=== PATIENT | male | born 1950 | race Caucasian/White ===

== ENCOUNTER 2022-11-08 22:24 | Inpatient (IN) | payer MEDICARE, OTHER ==
[~2022-11-08] VITALS: Ht 188 cm; Wt 97.1 kg
[2022-11-08] MEDS ORDERED: CEFTRIAXONE 1GM BAG (ER ONLY) 50 ML IV ONE (22:39)
[2022-11-08] MEDS ORDERED: CEFTRIAXONE 1GM BAG (ER ONLY) 1 GM/50 ML PIGGYBACK IV ONE (23:00)
[2022-11-08] MEDS ORDERED: IV NS 0.9% 1,000 ML BAG IV ONE (23:00)
--- NOTE | 2022-11-08 23:08 | NUR ---
[id number] from home, weakness, Hx of liver cirrhosis, BP 85/46 on scene IN 90S SYSTOLIC AT TRIAGE. PT AWAKE AND ALERT BREATHING UNLABORED ON 2LPM NC. CHANGED INTO GOWN AND MD AT BEDSIDE FOR EVAL.
[2022-11-08 23:50] LABS: BASOPHILS # (AUTO) 0.1 K/uL (0.0-0.2); BASOPHILS % (AUTO) 1.1 % (0.0-2.0); EOSINOPHILS % (AUTO) 0.3 % (0.0-6.0); HEMATOCRIT 26 % (39-51); HEMOGLOBIN 8.4 g/dL (13.5-17.5); LYMPHOCYTES # (AUTO) 1.4 K/uL (0.8-4.8); LYMPHOCYTES % (AUTO) 17.4 % (20.0-44.0); MEAN CORPUSCULAR HGB CONC 32 g/dl (31.0-36.0); MEAN CORPUSCULAR VOLUME 103 fL (80-96); MONOCYTES # (AUTO) 0.4 K/uL (0.1-1.30); MONOCYTES % (AUTO) 4.9 % (2.0-12.0); NEUTROPHILS # (AUTO) 6.3 K/uL (1.8-8.9); NEUTROPHILS % (AUTO) 76.3 % (43.0-81.0); PLATELET COUNT (AUTO) 161 K/uL (150-450); RED BLOOD CELL COUNT(AUTO) 2.53 MIL/uL (4.5-6.0); WHITE BLOOD COUNT (AUTO) 8.2 K/uL (4.3-11.0)
--- NOTE | 2022-11-08 23:55 | NUR ---
20g IV STARTED AT [facility].MEDICATED ORDERED.
[2022-11-09 00:04] LABS: BILIRUBIN,URINE 3+ (NEGATIVE); COLOR,URINE DARK YELLOW (YELLOW); LEUKOCYTE ESTERASE ,URINE NEGATIVE (NEGATIVE); NITRITE, URINE POSITIVE (NEGATIVE); PROTEIN,URINE 2+ mg/dl (NEGATIVE); UGLUCOSE TRACE mg/dL (NEGATIVE)
[2022-11-09 00:14] LABS: SODIUM SERUM 133 mmol/L (136-145)
[2022-11-09 00:15] LABS: CALCIUM, SERUM 7.9 mg/dL (8.5-10.1); CARBON DIOXIDE 14 mmol/L (21-32); CHLORIDE 106 mmol/L (98-107); CREATININE 3.2 mg/dL (0.6-1.3); GLUCOSE 189 mg/dL (74-106); POTASSIUM 5.8 mmol/L (3.5-5.1); UREA NITROGEN, BLOOD 52 mg/dL (7-18)
[2022-11-09 00:16] LABS: BILIRUBIN,DIRECT 5.3 mg/dL (0.0-0.2); BILIRUBIN,TOTAL 7.6 mg/dL (0.2-1.0)
[2022-11-09 00:17] LABS: ALANINE AMINOTRANSFERASE 119 U/L (12-78); ALBUMIN 1.5 g/dL (3.4-5.0); ALKALINE PHOSPHATASE 123 U/L (46-116); ASPARTATE AMINOTRANSFERASE 109 U/L (15-37); TOTAL PROTEIN, SERUM 4.9 g/dL (6.4-8.2)
[2022-11-09 00:39] LABS: BACTERIA,URINE 2+ /HPF (None Seen); CALCIUM OXALATE CRYSTALS,UR Few /HPF (None Seen); COARSE GRANULAR CASTS,URINE Few /LPF (None Seen); SQUAMOUS EPITHELIAL CELL,UR Few /HPF (None Seen); WBC,URINE 0-2 /HPF (0-3)
[2022-11-09] MEDS ORDERED: TRAMADOL HCL 50 MG TABLET PO ONE (01:30)
[2022-11-09] MEDS ORDERED: ALBUMIN 5% 12.5 GM/250 ML BOTTLE IV ONE ×2 (01:30→02:00)
[2022-11-09] MEDS ORDERED: TRAMADOL HCL 50 MG TABLET ONE (01:36)
[2022-11-09] MEDS ORDERED: ALBUMIN 5% 250 ML IV ONE (01:57)
[2022-11-09] MEDS ORDERED: IV NS 0.9% 1,000 ML IV ONE (02:00)
[2022-11-09] MEDS ORDERED: MISCELLANEOUS MED 1 EA EA IV ONE (02:30)
--- NOTE | 2022-11-09 02:36 | NUR ---
PT COMPLAINING OF PAIN AT IV SITE AND REQUESTING IV REMOVAL. FAMILY REQUESTING PICC LINE PLACEMENT. MD MADE AWARE AND ORDER PLACED. NURSING SUPERVISOR CARTOGRAPHY MADE AWARE.
[2022-11-09] MEDS ORDERED: LORAZEPAM 1 MG TABLET PO ONE (03:30)
--- NOTE | 2022-11-09 03:35 | NUR ---
20g IV STARTED AT [facility]. ALBUMIN AND IVF REINITIATED.
[2022-11-09] MEDS ORDERED: LORAZEPAM 1 MG TABLET ONE (03:36)
--- NOTE | 2022-11-09 05:25 | NUR ---
PICC LINE CONSENT SIGNED AND PLACED IN CHART
[2022-11-09] MEDS ORDERED: CEFTRIAXONE 1 G in IV D5W 50 ML IV SCH ×2 (06:00→22:00)
[2022-11-09] MEDS ORDERED: MORPHINE SULFATE INJ 2 MG/ML DISP.SYRIN IV PRN (06:30)
[2022-11-09] MEDS ORDERED: ACETAMINOPHEN 325 MG TABLET PO PRN (06:30)
[2022-11-09] MEDS ORDERED: ONDANSETRON HCL/PF 4 MG/2 ML VIAL IVP PRN (06:30)
[2022-11-09] MEDS ORDERED: TRAMADOL HCL 50 MG TABLET PO PRN (07:00)
[2022-11-09] MEDS ORDERED: LACTULOSE 10 G/15 ML UDC (PYXIS) ONE (07:06)
[2022-11-09] MEDS: LACTULOSE 10 G/15 ML UDC (PYXIS) PO SCH ×4 (07:07→18:30)
[2022-11-09 07:30] LABS: ALANINE AMINOTRANSFERASE 553 U/L (12-78); ALBUMIN 1.7 g/dL (3.4-5.0); ALKALINE PHOSPHATASE 136 U/L (46-116); ASPARTATE AMINOTRANSFERASE 792 U/L (15-37); BILIRUBIN,DIRECT 5.3 mg/dL (0.0-0.2); BILIRUBIN,TOTAL 7.7 mg/dL (0.2-1.0); CALCIUM, SERUM 7.8 mg/dL (8.5-10.1); CARBON DIOXIDE 16 mmol/L (21-32); CHLORIDE 106 mmol/L (98-107); CREATININE 3.3 mg/dL (0.6-1.3); GLUCOSE 158 mg/dL (74-106); MAGNESIUM 2.1 mg/dL (1.8-2.4); PHOSPHORUS 6.2 mg/dL (2.5-4.9); POTASSIUM 5.5 mmol/L (3.5-5.1); SODIUM SERUM 133 mmol/L (136-145); TOTAL PROTEIN, SERUM 4.7 g/dL (6.4-8.2); UREA NITROGEN, BLOOD 51 mg/dL (7-18)
[2022-11-09 07:32] LABS: BASOPHILS % (AUTO) 0.5 % (0.0-2.0); EOSINOPHILS % (AUTO) 0.3 % (0.0-6.0); HEMATOCRIT 28 % (39-51); HEMOGLOBIN 8.7 g/dL (13.5-17.5); LYMPHOCYTES % (AUTO) 11.6 % (20.0-44.0); MEAN CORPUSCULAR HGB CONC 32 g/dl (31.0-36.0); MEAN CORPUSCULAR VOLUME 106 fL (80-96); MONOCYTES # (AUTO) 0.5 K/uL (0.1-1.30); MONOCYTES % (AUTO) 5.9 % (2.0-12.0); NEUTROPHILS % (AUTO) 81.7 % (43.0-81.0); PLATELET COUNT (AUTO) 141 K/uL (150-450); RED BLOOD CELL COUNT(AUTO) 2.59 MIL/uL (4.5-6.0); WHITE BLOOD COUNT (AUTO) 8.5 K/uL (4.3-11.0)
--- NOTE | 2022-11-09 08:02 | NUR ---
REPORT GIVEN TO RN FOR HANDOFF
[2022-11-09 08:22] LABS: CHOLESTEROL 74 mg/dL (<200); HDL CHOLESTEROL 29 mg/dL (40-60); LDL 33 mg/dL (0-99); TRIGLYCERIDES 58 mg/dL (30-150)
--- NOTE | 2022-11-09 08:38 | NUR ---
RN OPENING NOTES RECEIVED PATIENT FROM EMERGENCY DEPARTMENT. BREATHING EVENLY AND UNLABORED ON ROOM AIR. ATTACHED TO TELEMETRY BOX. IV ACCESS ON LEFT UPPER ARM SALINE LOCKED. SAFETY MEASURES IMPLEMENTED. WILL CONTINUE PLAN OF CARE AND ANTICIPATE NEEDS.
--- NOTE | 2022-11-09 08:46 | NUR ---
PATIENT TRANSFERRED TO 105-1, REPORT GIVEN TO PERCY GROVE, ALL CARE ENDORSED
[2022-11-09] MEDS ORDERED: PANTOPRAZOLE 40 MG VIAL IV SCH (09:00)
[2022-11-09] MEDS ORDERED: DIGO250T PO (09:30)
[2022-11-09] MEDS ORDERED: CHOL100043 PO (09:30)
[2022-11-09] MEDS ORDERED: LINA5TAB PO (09:30)
[2022-11-09] MEDS ORDERED: TAMS-12 PO (09:30)
[2022-11-09] MEDS ORDERED: METO25TA20 PO (09:30)
[2022-11-09] MEDS: PHYTONADIONE INJ 10 MG/1 ML AMPUL SQ SCH (10:29)
[2022-11-09 12:00] VITALS: BP 90/41
[2022-11-09 16:00] VITALS: BP 86/35
--- NOTE | 2022-11-09 18:42 | NUR ---
PATIENT REFUSED LACTULOSE. EXPLAINED BENEFITS OF THE MEDICATION TO THE PATIENT. STILL REFUSES MEDICATION. WILL CONTINUE PLAN OF CARE AND ANTICIPATE NEEDS.
--- NOTE | 2022-11-09 18:57 | NUR ---
RN CLOSING NOTES PATIENT REMAINS IN BED, BREATHING EVENLY AND UNLABORED ON ROOM AIR. ATTACHED TO TELEMETRY BOX, READING ATRIAL FLUTTER WITH RIGHT BUNDLE BRANCH BLOCK. IV ACCESS ON RIGHT UPPER ARM SALINE LOCKED AND LEFT UPPER ARM MIDLINE. KEPT CLEAN AND DRY THROUGHOUT SHIFT. SAFETY MEASURES IMPLEMENTED. WILL ENDORSE TO NIGHTSHIFT PERCY BROWN FOR CONTINUATION OF CARE.
--- NOTE | 2022-11-09 19:30 | NUR ---
RN OPENING NOTES RECEIVED PATIENT AWAKE IN BED, A/O X2 FOLLOWS COMMANDS, SPANISH SPEAKING, FAMILY MEMBER AT BEDSIDE, BREATHING EVENLY AND UNLABORED ON ROOM AIR. ATTACHED TO TELEMETRY BOX, READING ATRIAL FLUTTER WITH RIGHT BUNDLE BRANCH BLOCK AT 89 BPM. IV ACCESS ON RIGHT UPPER ARM SALINE LOCKED AND LEFT UPPER ARM MIDLINE. SAFETY MEASURES IMPLEMENTED. WILL CONTINUE TO MONITOR THROUGHOUT THE SHIFT.
[2022-11-09 20:00] VITALS: BP 76/45
[2022-11-09] MEDS: MIDODRINE HCL (5MG) 5 MG TABLET PO SCH (20:13)
--- NOTE | 2022-11-09 20:13 | NUR ---
RN NOTE NOTED PT BP AT 75/49, BUILDING ENERGY RETROFIT TECHNICIAN MADE AWARE, ORDERED MIDODRINE 10 MG PO, ORDER TAKEN AND CARRIED OUT, WILL CONT TO MONITOR. CN MADE AWARE.
[2022-11-09] MEDS ORDERED: ALBUMIN 25% 25 GM in PREMIX 1 EA IV SCH (22:30)
[2022-11-10] VITALS: BP 78/48
[2022-11-10] MEDS ORDERED: ALBUMIN 25% 100 ML IV ONE (00:06)
--- NOTE | 2022-11-10 00:19 | NUR ---
RN NOTE PT BP AT 78/48 HR AT 124 AFTER MIDODRINE PO AND ALBUMIN 25 MG GIVEN, ONCALL MADE AWARE, ORDERED NS BOLUS AT 500 ML/HR, PT TOLERATED WELL, WILL CONT TO MONITOR THROUGHOUT THE SHIFT.
[2022-11-10] MEDS: LACTULOSE 10 G/15 ML UDC (PYXIS) PO SCH ×2 (00:30→06:30)
[2022-11-10] MEDS ORDERED: IV NS 0.9% 500 ML IV ONE (01:00)
--- NOTE | 2022-11-10 01:00 | NUR ---
RN NOTE PT REFUSED SCHEDULED LACTULOSE, EDUCATED ABOUT THE IMPORTANCE OF MEDICATION FOR HIS LIVER CIRRHOSIS, PT STILL REFUSED, WILL CONT TO MONITOR.
--- NOTE | 2022-11-10 03:41 | NUR ---
PT PLACED OH HFNC 40L 100% DUE TO RESP DISTRESS. PT CURRENTLY ON NRB 15L WITH HFNC S/B. SPO2 >92%.
[2022-11-10 04:00] VITALS: BP 102/60
--- NOTE | 2022-11-10 05:00 | NUR ---
RN NOTE CALLED DAUGHTER CLAUDIA, UPDATES WERE GIVEN ABOUT PT CONDITION. PER CLAUDIA THEY WILL BE COMING OVER AT 8AM.
--- NOTE | 2022-11-10 07:00 | NUR ---
RN CLOSING NOTES PATIENT AWAKE IN BED, A/O X1-2 , ON NRB MASK SATING 100%, ATTACHED TO TELEMETRY BOX, READING AFIB WITH RIGHT BUNDLE BRANCH BLOCK AT 89 BPM. IV ACCESS ON LEFT UPPER ARM ML GOT DISLODGED, OBTAINED NEW ACCESS ON LAC #20G SALINE LOCKED. PT REFUSED AM SCHEDULED LACTULOSE PER PT "I DON'T WANT TO TAKE ANYTHING RIGHT NOW" ENCOURAGE ABOUT THE IMPORTANCE OF TAKING MEDS, PT STILL REFUSED. SAFETY MEASURES IMPLEMENTED THROUGHOUT THE SHIFT. WILL ENDORSE TO AM SHIFT NURSE FOR CONTINUITY OF CARE.
--- NOTE | 2022-11-10 07:15 | NUR ---
RACKING MACHINE OPERATOR OPENING NOTES: RECEIVED REPORT FROM PERCY SOLER. PATIENT IN BED, AWAKE BUT NON VERBAL, DOES NOT ANSWER TO HIS NAME. PATIENT IS ON HIGH FLOW OXYGEN WITH OXYGEN SATURATION OF 95% AT THIS TIME. HOB KEPT ELEVATED. ON A-FIB WITH HR OF 63 PER TELE MONITOR. PATIENT HAS IV ACCESS ON LEFT UPPER ARM. ALL SAFETY MEASURES IN PLACE. BED LOCKED AND IN LOWEST POSITION WITH BED ALARM ON. CALL LIGHT WITHIN REACH. WILL CONTINUE TO MONITOR PATIENT AT THIS TIME.
[2022-11-10 08:00] VITALS: BP 84/31
--- NOTE | 2022-11-10 08:23 | NUR ---
PATIENT NOTED TO HAVE OXYGEN SATURATION OF 78%. CONTACTED RT TO PLEASE CHECK THE PATIENT. REPOSITIONED PATIENT FOR COMFORT AND PLACED ON HIGH MERRITT'S POSITION WITH HIGH OXYGEN INTACT. WILL CONTINUE TO MONITOR PATIENT
[2022-11-10 08:39] VITALS: BP 84/31
[2022-11-10] MEDS: MIDODRINE HCL (5MG) 5 MG TABLET PO SCH (08:39)
--- NOTE | 2022-11-10 08:39 | NUR ---
PO MEDS NOT GIVEN TO THE PATIENT HIGH RISK FOR ASPIRATION
--- NOTE | 2022-11-10 08:45 | NUR ---
RT CAME AND CHECKED THE PATIENT, OXYGEN SATURATION IS 80, WILL ALSO CHANGE THE OXYGEN SENSOR FOR THE PATIENT
[2022-11-10] MEDS: PHYTONADIONE INJ 10 MG/1 ML AMPUL SQ SCH (09:00)
[2022-11-10] MEDS ORDERED: PANTOPRAZOLE 40 MG TABLET.DR PO SCH (09:00)
--- NOTE | 2022-11-10 09:03 | NUR ---
CALLED DAUGHTER CLAUDIA @ AND UPDATED HER ABOUT PATIENT'S DROP IN OXYGEN LEVEL AND WITH THE HR OF 43 RIGHT NOW AND SAID THAT THEY ARE ON THEIR WAY TO SEE THE PATIENT RIGHT NOW.
--- NOTE | 2022-11-10 09:12 | NUR ---
FAMILY MEMBERS CAME TO SEE THE PATIENT, ON HIGH FLOW OXYGEN AND OXYGEN LEVEL IS RAPIDLY DETERIORATING TO 65. KEPT PATIENT ON HIGH MERRITT'S POSITION TO FACILITATE PROPER OXYGENATION. HR IS ALSO DROPPING TO 40 PER TELE MONITOR.
--- NOTE | 2022-11-10 09:34 | NUR ---
CHECKED THE PATIENT AGAIN AND NOTICED THAT THERE IS NO OXYGEN SATURATION ON THE MONITOR. CHECKED THE HEART MONITOR AND ASYSTOLE ON THE MONITOR. PATIENT HAS NO CAROTID PULSE, NO BREATHING NOTED, PUPILS FIXED AND DILATED. CHARGE NURSE MADE AWARE THAT THE PATIENT . FAMILY INFORMED. ALSO NOTIFIED COMMERCIAL PROPERTY MANAGER AND DR. MULTANI. CALLED [facility]. PROVIDED PRIVACY FOR THE FAMILY TO MOURN AT THIS TIME
--- NOTE | 2022-11-10 10:03 | NUR ---
FAMILY LEFT AND PROVIDED POSTMORTEM CARE TO THE PATIENT AND PLACED HIM IN A BAG FOR ASSEMBLER METAL FURNITURE BY THE [facility]
== END 2022-11-10 09:45 | DRG 441 ==
LOC: ER 22:35 → TRANSITION 11-09 06:03 → TELE1 11-09 07:45
PROC: 05HC33Z Insertion of Infusion Device into Left Basilic Vein, Percutaneous Approach (ICD-10-PCS; principal; 2022-11-09)
DX: K76.82 Hepatic encephalopathy (principal); E43 Unspecified severe protein-calorie malnutrition; K76.7 Hepatorenal syndrome; N17.0 Acute kidney failure with tubular necrosis; N18.6 End stage renal disease; I12.0 Hypertensive chronic kidney disease with stage 5 chronic kidney disease or end stage renal disease; C22.0 Liver cell carcinoma; D68.9 Coagulation defect, unspecified; E87.1 Hypo-osmolality and hyponatremia; E87.20 Acidosis, unspecified; J90 Pleural effusion, not elsewhere classified; J98.11 Atelectasis; K72.10 Chronic hepatic failure without coma; Z20.822 Contact with and (suspected) exposure to COVID-19; E11.22 Type 2 diabetes mellitus with diabetic chronic kidney disease; I48.91 Unspecified atrial fibrillation; Z66 Do not resuscitate; Z76.82 Awaiting organ transplant status; K70.9 Alcoholic liver disease, unspecified; I25.10 Atherosclerotic heart disease of native coronary artery without angina pectoris; F10.21 Alcohol dependence, in remission; E87.70 Fluid overload, unspecified; E86.9 Volume depletion, unspecified; E88.09 Other disorders of plasma-protein metabolism, not elsewhere classified; E87.5 Hyperkalemia; Z79.899 Other long term (current) drug therapy; J44.9 Chronic obstructive pulmonary disease, unspecified; Z87.891 Personal history of nicotine dependence; D53.9 Nutritional anemia, unspecified; D69.6 Thrombocytopenia, unspecified; E27.9 Disorder of adrenal gland, unspecified; N40.0 Benign prostatic hyperplasia without lower urinary tract symptoms; K70.31 Alcoholic cirrhosis of liver with ascites; Y90.9 Presence of alcohol in blood, level not specified
CPT/HCPCS: 36415; 70450-TC; 71045-TC; 76770-TC; 80048-TC; 80061-TC; 80076-TC; 81001; 82140-TC; 83605-TC; 83735-TC; 84100-TC; 84484-TC; 85025-TC; 85730-TC; 87040-TC; 87081-TC; 87086-TC; 94799-TC; A4223; C9113; C9803; G0378; J0696; J3430; J7030; J7040; J7060; P9045; P9047